=== PATIENT | female | born 1985 | race American Indian/Alaskan Native ===

== ENCOUNTER 2017-04-04 22:35 | Emergency (ER) | payer OTHER ==
--- NOTE | 2017-04-05 05:29 | Emergency Department Report ---
HPI - General Chief Complaint: Extremity Injury, Upper Time Seen by Provider: 04/05/17 05:16 - HPI HPI: Patient is a 32-year-old female presents to the ED complaining of right foot digit finger swelling and pain for the past 7 days. Patient states she was at work she had a distended tip of her finger started to swallow and spina bifida. Patient states she doesn't recall hitting anything. She describes it as throbbing and stinging in nature with the pain 10 out of 10 in intensity. She denies fever chills nausea or trauma to the finger ED Past Medical Hx - Past Medical History Previous Medical History?: No - Surgical History Past Surgical History?: Yes Additional Surgical History: appy, c secx2, arm sx - Social History Smoking Status: Current Every Day Smoker Substance Use Type: None - Medications Home Medications: Home Medications Medication Instructions Recorded Confirmed Last Taken Type Cephalexin [Keflex] 500 mg PO Q12HR #12 cap 04/05/17 Unknown Rx Ibuprofen [Motrin] 800 mg PO Q8HR PRN #30 tablet 04/05/17 Unknown Rx ED Review of Systems ROS: Stated complaint: SWOLLEN FINGER RT Other details as noted in HPI Constitutional: denies: chills, fever Eyes: denies: eye pain, eye discharge, vision change ENT: denies: ear pain, throat pain Respiratory: denies: cough, shortness of breath, wheezing Cardiovascular: denies: chest pain, palpitations Endocrine: no symptoms reported Gastrointestinal: denies: abdominal pain, nausea, diarrhea Genitourinary: denies: urgency, dysuria, discharge Musculoskeletal: denies: back pain, joint swelling, arthralgia Skin: denies: rash, lesions Neurological: denies: headache, weakness, paresthesias Psychiatric: denies: anxiety, depression Hematological/Lymphatic: denies: easy bleeding, easy bruising Physical Exam - Physical Exam Vital Signs: Vital Signs 04/04/17 22:48 Temperature 99.1 F Pulse Rate 68 Respiratory 18 Rate Blood Pressure 110/58 [Right] O2 Sat by Pulse 100 Oximetry Physical Exam: GENERAL: Alert and oriented x3, no apparent distress, Normal Gait, atraumatic. LUNGS: Symetrical with respiration, No wheezing, no rales or crackles, CTAB. HEART: S1, S2 present, regular rate and rhythm without murmur, no rubs, no gallops. Non tender to palpation EXTREMITIES/MUSCULOSKELETAL: Right fourth digit safe swollen, tender to palpation, no active bleeding, no ecchymoses. Consistent with paronychia. Full ROM bilaterally. UE/LE Pulses 2+ bilaterally. LE and UE 5+ SKIN: Warm and dry, No lesions, No ulceration or induration present. ED Course Vital Signs 04/04/17 22:48 Temperature 99.1 F Pulse Rate 68 Respiratory 18 Rate Blood Pressure 110/58 [Right] O2 Sat by Pulse 100 Oximetry ED Medical Decision Making - Medical Decision Making 32-year-old female presents with paronychia of the right fourth digit. ED course: Digital block was obtained with 5 mL of 1% lidocaine. Betadine prep ,Incision was made with a 10 blade at the nail bed. Copious discharge expelled. Incision cleaned and sterilely draped Discussed patient with acute wound care. Discussed antibiotic use for the next 5 days. Discussed follow-up with primary care physician. Vital signs are normal patient is in no acute distress she understands all instructions given. Critical care attestation.: If time is entered above; I have spent that time in minutes in the direct care of this critically ill patient, excluding procedure time. ED Disposition Clinical Impression: Paronychia of finger of right hand Disposition: DC-01 TO HOME OR SELFCARE Is pt being admited?: No Does the pt Need Aspirin: No Condition: Stable Instructions: Paronychia (ED) Prescriptions: Cephalexin [Keflex] 500 mg PO Q12HR #12 cap Ibuprofen [Motrin] 800 mg PO Q8HR PRN #30 tablet PRN Reason: Pain Referrals: PRIMARY CARE, [Primary Care Provider] - 3-5 Days [facility] [Outside] - 3-5 Days [facility] [Outside] - 3-5 Days Forms: Accompanied Note, Work/School Release Form(ED) Time of Disposition: 05:58
[2017-04-05 06:31] VITALS: BP 117/77
== END 2017-04-05 06:26 | disposition home or self-care (01) ==
LOC: ED 22:35
DX: L03.031 Cellulitis of right toe (principal); F17.200 Nicotine dependence, unspecified, uncomplicated